=== PATIENT | female | born 1975 | race Caucasian/White ===

== ENCOUNTER 2016-12-14 20:45 | Emergency (ER) | payer OTHER ==
[2016-12-14 20:50] VITALS: BP 152/61; PULSE 86; TEMP 97.9; BMI 21.4
[2016-12-14] MEDS ORDERED: PANTOPRAZOLE 40 MG TABLET (FP) PO ONE (22:41)
--- NOTE | 2016-12-14 22:41 | PDOC ---
History of Present Illness - History of Present Illness Initial Comments: 12/14/16 22:47 41 year old female (LMP: November 30) with no PMHx who presents to the ED with epigastric pain today. Patient states the pain began after she ate. She has had similar symptoms in the past. She reports associated nausea. She had an endoscopy 7 years ago, which was normal. She denies vomiting, diarrhea, constipation. <Anastacia Barrett - Last Filed: 12/14/16 22:47> <Jessica Matute - Last Filed: 12/15/16 01:54> - General Chief Complaint: Pain Stated Complaint: STOMACH ACHE/EMPLOYEE Time Seen by Provider: 12/14/16 21:37 Past History <Anastacia Barrett - Last Filed: 12/14/16 22:47> - Psycho/Social/Smoking Cessation Hx Suicidal Ideation: No Smoking History: Never smoked <Jessica Matute - Last Filed: 12/15/16 01:54> - Past Medical History Allergies/Adverse Reactions: Allergies Allergy/AdvReac Type Severity Reaction Status Date / Time No Known Allergies Allergy Verified 12/14/16 20:48 Home Medications: Ambulatory Orders Omeprazole 20 mg PO DAILY #14 capsule. 12/15/16 Review of Systems - Review of Systems Comments:: 12/14/16 22:47 CONSTITUTIONAL: Absent: fever, no chills, no fatigue EYES: Absent: visual changes ENT: Absent: ear pain, no sore throat CARDIOVASCULAR: Absent: chest pain, no palpitations RESPIRATORY: Absent: cough, no SOB GI: Present: epigastric pain, nausea Absent: no vomiting, no constipation, no diarrhea GENITOURINARY: Absent: dysuria, no frequency, no hematuria MUSCULOSKELETAL: Absent: back pain, no arthralgia, no myalgia SKIN: Absent: rash NEURO: Absent: headache <Anastacia Barrett Last Filed: 12/14/16 22:47> *Physical Exam - Vital Signs Last Vital Signs Temp Pulse Resp BP Pulse Ox 97.9 F 86 18 152/61 100 12/14/16 20:48 12/14/16 20:48 12/14/16 20:48 12/14/16 20:48 12/14/16 20:48 - Physical Exam Comments: 12/14/16 22:47 GENERAL: Well-appearing, well-nourished. No apparent distress. HEENT: Normocephalic, atraumatic. PERRL, EOM intact. CARDIOVASCULAR: Normal S1, S2. Regular rate and rhythm. PULMONARY: Clear to auscultation bilaterally. ABDOMEN: Soft, non-distended, non-tender. EXTREMITIES: Normal ROM in all four extremities. No gross deformities. SKIN: Warm, dry. No rash NEUROLOGICAL: No focal neurological deficits. <Anastacia Barrett - Last Filed: 12/14/16 22:47> - Vital Signs Last Vital Signs Temp Pulse Resp BP Pulse Ox 97.9 F 86 18 152/61 100 12/14/16 20:48 12/14/16 20:48 12/14/16 20:48 12/14/16 20:48 12/14/16 20:48 <Jessica Matute - Last Filed: 12/15/16 01:54> ED Treatment Course - LABORATORY CBC & Chemistry Diagram: 12/15/16 00:05 12/15/16 00:05 <Jessica Matute - Last Filed: 12/15/16 01:54> *DC/Admit/Observation/Transfer - Attestations Scribe Attestion: 12/14/16 22:47 Documentation prepared by Anastacia Barrett, acting as biomedical field service engineer for Jessica Matute MD. <Anastacia Barrett - Last Filed: 12/14/16 22:47> <Jessica Matute - Last Filed: 12/15/16 01:54> Diagnosis at time of Disposition: Epigastric abdominal pain GERD (gastroesophageal reflux disease) Qualifiers: Esophagitis presence: without esophagitis Qualified Code(s): K21.9 - Gastro- esophageal reflux disease without esophagitis - Discharge Dispostion Disposition: HOME Condition at time of disposition: Stable - Prescriptions Prescriptions: Omeprazole 20 mg PO DAILY #14 capsule.dr - Referrals Referrals: Brenton La MD [Primary Care Provider] - - Patient Instructions Printed Discharge Instructions: DI for Gastroesophageal Reflux Disease (GERD), DI for Epigastric Pain Additional Instructions: please follow up with your regular physician hot die picker your prescription medication at your pharmacy
[2016-12-14] MEDS ORDERED: MAG HYDROX/AL HYDROX/SIMETH 30 ML UNIT-DOSE CUP PO ONE (22:42)
[2016-12-14] MEDS ORDERED: ACETAMINOPHEN 325 MG TABLET (FP) PO ONE (22:47)
[2016-12-14] MEDS ORDERED: MAG HYDROX/AL HYDROX/SIMETH 30 ML UNIT-DOSE CUP ONE (23:38)
[2016-12-14] MEDS ORDERED: PANTOPRAZOLE 40 MG TABLET (FP) ONE (23:38)
[2016-12-14] MEDS ORDERED: ACETAMINOPHEN 325 MG TABLET (FP) ONE (23:39)
[2016-12-15 00:33] LABS: BASOPHIL 0.7 % (0-2.0); EOSINOPHIL 3.1 % (0-4.5); MCHC 33.1 g/dl (32.0-36.0); MEAN CELL VOLUME 90.8 fl (80-96); NEUTROPHILS 67.4 % (42.8-82.8); PLATELET COUNT 224 K/MM3 (134-434); RDW 13.3 % (11.6-15.6)
[2016-12-15 01:15] LABS: ALBUMIN 3.8 g/dl (3.4-5.0); ALK PHOS 77 U/L (45-117); ANION GAP 8 (8-16); BILIRUBIN,TOTAL 0.2 mg/dL (0.2-1.0); CALCIUM 9.4 mg/dL (8.5-10.1); CO2 27 mmol/L (21-32); CREATININE 0.7 mg/dL (0.55-1.02); GLUCOSE,RANDOM 109 mg/dL (74-106); SGOT/AST 23 U/L (15-37); SGPT/ALT 24 U/L (12-78); TOT PROT 7.8 g/dl (6.4-8.2)
== END 2016-12-15 02:08 | disposition home or self-care (01) ==
LOC: JER 20:45
DX: J21.9 Acute bronchiolitis, unspecified (principal)
CPT/HCPCS: 36415; 80053; 83690; 85025; 99282-25

== ENCOUNTER 2018-06-12 05:08 | Inpatient (IN) | payer OTHER ==
[2018-06-07 08:43] VITALS: BMI 21.4
[2018-06-12] MEDS ORDERED: PHENAZOPYRIDINE HCL 100 MG TABLET (FP) PO ONE (06:53)
[2018-06-12] MEDS ORDERED: ONDANSETRON 4 MG/2 ML VIAL IVPUSH PRN (07:59)
[2018-06-12] MEDS ORDERED: LACTATED RINGERS SOLUTION 1,000 ML/1,000 ML INFUS.BAG IV SCH (08:00)
--- NOTE | 2018-06-12 08:10 | HP ---
History & Physical Update - History History: No Change - Physical Physical: No Change - Assessment Assessment: No Change - Plan Plan: No Change (No change in HP)
[2018-06-12] MEDS ORDERED: VASOPRESSIN 20 UNITS/ML VIAL IV ONE (09:19)
[2018-06-12] MEDS ORDERED: PHENAZOPYRIDINE HCL 100 MG TABLET (FP) ONE (09:23)
[2018-06-12] MEDS ORDERED: CEFAZOLIN 1 GM/D5W 1 GM/50 ML BAG ONE (09:56)
[2018-06-12] MEDS ORDERED: fentaNYL CITRATE 250 MCG/5 ML VIAL ONE (10:04)
[2018-06-12] MEDS ORDERED: ROCURONIUM BROMIDE 50 MG/5 ML VIAL ONE (10:04)
[2018-06-12] MEDS ORDERED: DEXAMETHASONE SOD PHOSPHATE/PF 10 MG/ML SDV ONE (10:51)
[2018-06-12] MEDS ORDERED: ROPIVACAINE HCL 0.5% 30ML VIAL ONE (10:51)
[2018-06-12] MEDS ORDERED: MIDAZOLAM HCL 2 MG/2 ML SINGLE DOSE VIAL ONE ×2 (10:52)
[2018-06-12] MEDS ORDERED: DEXAMETHASONE SOD PHOSPHATE 4 MG/1 ML VIAL ONE (11:05)
[2018-06-12] MEDS ORDERED: KETOROLAC TROMETHAMINE 30 MG/1 ML VIAL ONE (11:05)
[2018-06-12] MEDS ORDERED: ceFAZolin SODIUM 1 GM VIAL ONE (11:05)
[2018-06-12] MEDS ORDERED: ceFAZolin SODIUM 1 GM VIAL IVPB ONE (11:25)
[2018-06-12] MEDS ORDERED: NEOSTIGMINE METHYLSULFATE 0.5 MG/ML - 10 ML MDV ONE (12:23)
--- NOTE | 2018-06-12 12:44 | OP ---
Operative Note - Note: Operative Date: 06/12/18 Pre-Operative Diagnosis: Uterine fibroids Operation: Open abdominal myomectomy Post-Operative Diagnosis: Same as Pre-op Surgeon: Peggy Del Valle Surgical Garment Assembler: Clay Carter Anesthesiologist/TRUCK RENTAL CLERK: Ronal Mcrae Anesthesia: General Specimens Removed: Uterine fibroids Estimated Blood Loss (mls): 25 Drains, Volume Out (mls): 150 (esquivel - orange secondary to pyridium) Fluid Volume Replaced (mls): 800 Operative Report Dictated: Yes
--- NOTE | 2018-06-12 12:45 | SURG ---
Surgery Wood Type Finisher Note Wood Type Finisher: Clay Carter PA-C Date of Service: 06/12/18 Diagnosis: Uterine fibroids Procedure: Open abdominal myomectomy I was present for the entirety of the operative procedure. For further detail, please refer to operative report. Visit type - Case Type Case Type: Scheduled - New patient This patient is new to me today: Yes Date on this admission: 06/12/18
[2018-06-12] MEDS ORDERED: ACETAMINOPHEN 1000 MG/100 ML VIAL (NON FORMULARY) IVPB ONE (12:53)
[2018-06-12] MEDS ORDERED: KETOROLAC TROMETHAMINE 30 MG/1 ML VIAL IVPUSH ONE (12:53)
[2018-06-12] MEDS ORDERED: oxyCODONE HCL 5 MG TABLET PO PRN ×2 (13:54)
[2018-06-12] MEDS ORDERED: oxyCODONE HCL 5 MG TABLET ONE (14:22)
[2018-06-12] MEDS: IBUPROFEN 800 MG/8 ML IJ IVPB PRN (16:17)
[2018-06-12] MEDS: CEFAZOLIN 1 GM/D5W 1 GM/50 ML BAG IVPB SCH ×2 (17:37→18:00)
--- NOTE | 2018-06-12 17:51 | OP ---
DATE OF OPERATION: 06/12/2018 PREOPERATIVE DIAGNOSIS: Leiomyomatous uterus. OPERATION: Abdominal myomectomy. POSTOPERATIVE DIAGNOSIS: Leiomyomatous uterus, adenomyosis. SURGEON: Andrei Harrington MD NUCLEAR OPERATIONS SPECIALIST: BRIGITTE Arrington ANESTHESIOLOGIST: Zac Scruggs MD NURSE TRANSITION PROGRAM MANAGER: Ronal Mcrae CRNA ANESTHESIA: General. ESTIMATED BLOOD LOSS: 25 mL. Approximately 7 myomas removed including adenomyotic myoma removed. About 100 mL in the Pickett. DESCRIPTION OF PROCEDURE: The patient was taken to the operating room and placed in supine position, prepped and draped in the usual sterile fashion. A time-out was performed in accordance with hospital regulation. Pfannenstiel skin incision was made with the scalpel. Cautery was then used to cut the layers of the abdominal wall to the level of the fascia. The fascia was cut in the midline, and cautery was then used to open the fascia in smiling fashion. Kochers were then used to bluntly and sharply dissect the rectus muscle at the fascia. Muscles split in the midline. Peritoneal cavity was then entered and carried upward and downward. A leiomyomatous uterus was then exteriorized. Mostly subserosal and intramural myomas were palpated and seen. A 5-cm myoma was seen near the bladder. A tourniquet was then placed in the clear space of the broad and tied for hemostasis. Pitressin was then infiltrated into numerous myomas that were mostly subserosal. Cautery was then used to make a 4-cm incision transversely anterior aspect of the uterus and removed an approximately 5-cm myoma with blunt and sharp technique. Protruding fundal myomas were noted, and a transverse incision from right to left was performed. Adenomyosis was seen closer to the endometrial cavity and was then shelled out. An adenomyotic myoma was shelled out. Fundal myoma was also removed approximately 4 cm in the fundus. Endometrial cavity was entered and palpated and found to have no fibroids in the endometrium. A 2-0 Vicryl was then used to close off the endometrium aiming to repair the endometrium in the fundal aspect of the right side of the uterus continuous and locking using 2-0 Vicryl. Muscle was then closed in several layers using 0 Vicryl suture, and V-Lock suture was then used to close the transverse fundal incision. Posterior myoma was noted pedunculated and was approximately 5 cm in size, and that was also removed posteriorly. Incisions were closed in layers using 0 Vicryl suture and V-Lock suture on the serosa for hemostasis. Interceed was then sewn in place, and the uterus was then anteriorized. Irrigation was then done. Peritoneum was then closed after abdominal sweep performed. A 0 Vicryl suture in a continuous fashion was then done. The fascia was then closed using 0 Vicryl suture in 2 ports. The skin was then closed using 2-0 V-Lock suture in a subcuticular fashion. The wound was washed and dressed. The patient tolerated the procedure well and was taken to the recovery room in stable condition. Estimated blood loss 25 mL. ANDREI HARRINGTON M.D. [id number]
[2018-06-12 18:33] LABS: HEMATOCRIT 42.7 % (32.4-45.2); HEMOGLOBIN 14.3 GM/dL (10.7-15.3); MCH 30.4 pg (25.7-33.7); MCHC 33.4 g/dl (32.0-36.0); MEAN CELL VOLUME 91.2 fl (80-96); MEAN PLT VOLUME 9.3 fl (7.5-11.1); PLATELET COUNT 212 K/MM3 (134-434); RBC 4.68 M/mm3 (3.60-5.2); RDW 13.1 % (11.6-15.6); WHITE BLOOD COUNT 14.1 K/mm3 (4.0-10.0)
[2018-06-12 19:09] LABS: ANION GAP 9 MMOL/L (8-16); BLOOD UREA NITROGEN 10 mg/dL (7-18); CALCIUM 8.5 mg/dL (8.5-10.1); CHLORIDE 103 mmol/L (98-107); CO2 25 mmol/L (21-32); CREATININE 0.8 mg/dL (0.55-1.3); GLUCOSE,RANDOM 138 mg/dL (74-106); SODIUM 137 mmol/L (136-145)
[2018-06-13] MEDS: CEFAZOLIN 1 GM/D5W 1 GM/50 ML BAG IVPB SCH (01:30)
[2018-06-13 05:32] LABS: ANION GAP 7 MMOL/L (8-16); BLOOD UREA NITROGEN 10 mg/dL (7-18); CALCIUM 8.3 mg/dL (8.5-10.1); CHLORIDE 105 mmol/L (98-107); CO2 27 mmol/L (21-32); CREATININE 0.7 mg/dL (0.55-1.3); GLUCOSE,RANDOM 105 mg/dL (74-106); POTASSIUM 4.1 mmol/L (3.5-5.1); SODIUM 138 mmol/L (136-145)
[2018-06-13 06:06] LABS: HEMATOCRIT 40.6 % (32.4-45.2); HEMOGLOBIN 13.7 GM/dL (10.7-15.3); MCH 30.5 pg (25.7-33.7); MCHC 33.7 g/dl (32.0-36.0); MEAN CELL VOLUME 90.5 fl (80-96); MEAN PLT VOLUME 9.4 fl (7.5-11.1); PLATELET COUNT 216 K/MM3 (134-434); RBC 4.49 M/mm3 (3.60-5.2); RDW 13.4 % (11.6-15.6); WHITE BLOOD COUNT 13.1 K/mm3 (4.0-10.0)
[2018-06-13] MEDS: IBUPROFEN 800 MG/8 ML IJ IVPB PRN (07:14)
[2018-06-13] MEDS ORDERED: BISACODYL 5 MG TABLET.DR (FP) PO PRN (07:59)
[2018-06-13] MEDS ORDERED: DOCUSATE SODIUM 100 MG CAPSULE (FP) PO PRN (07:59)
--- NOTE | 2018-06-13 08:03 | PN ---
Progress Note (short form) - Note Progress Note: Surgery POD #1 abdominal myomectomy patient seen and examined at bedside with no complaints. Patient stated her pain is controlled and she denies any CP, SOB, N/ V, Fever or chills. Her esquivel is still in and she has not been OOB yet. Vital Signs Temp 98.6 F 06/13/18 02:00 Pulse 82 06/13/18 02:00 Resp 18 06/13/18 02:00 BP 96/42 L 06/13/18 02:00 Pulse Ox 99 06/12/18 21:00 Intake & Output 06/12/18 06/12/18 06/13/18 11:59 23:59 11:59 Intake Total 985 994 4331 Output Total 875 1200 Balance 800 -175 350 Intake: IV 717 925 8133 LACTATED RINGERS SOLUTION 1500 1,000 ml In 1,000 ml @ 125 mls/hr IV ASDIR DANAE Rx#:[id number] IVPB 50 50 Output: Urine 850 1200 Esquivel 350 1200 Estimated Blood Loss 25 Other: Voiding Method Indwelling Catheter Bowel Movement No CBC, BMP 06/13/18 04:55 06/13/18 04:55 PE: A&Ox3, NAD Unlabored resp on RA ABD: soft, with mild ttp over lower quadrants appropriate to status, ND, incision c/d/i with steri strips in place, surrounding tissue intact and no tacking erythema or d/c Problem List - Problems (1) S/P myomectomy Assessment/Plan: POD #1 abdominal myomectomy doing well. 1) D/c esquivel and trend I&Os 2) Advance diet to clears 3) OOB with assist as tolerated 4) encourage IS 5) d/c planning for tomorrow pending. Code(s): Z98.890 - OTHER SPECIFIED POSTPROCEDURAL STATES
[2018-06-13] MEDS ORDERED: ENOXAPARIN NA (PORCINE) 40 MG/0.4 ML DISP.SYRIN SQ SCH (10:00)
[2018-06-13] MEDS: ENOXAPARIN NA (PORCINE) 40 MG/0.4 ML DISP.SYRIN SQ SCH (10:50)
[2018-06-13] MEDS: oxyCODONE HCL 5 MG TABLET PO PRN ×3 (12:29→20:45)
[2018-06-13] MEDS: ACETAMINOPHEN 325 MG TABLET (FP) PO PRN ×3 (12:29→20:45)
--- NOTE | 2018-06-13 17:10 | PATH ---
Surgical Pathology Report Patient Name: JESUS KENNY [facility]. Rec. #: [id number] /Age/Gender: 1975 (Age: 42) / F Account: [id number] Location: [facility] OBS/AGRICULTURIST Taken: 06/12/2018 Received: 06/12/2018 Reported: 06/13/2018 Physicians: Peggy Del Valle M.D. Specimen(s) Received FIBROIDS Clinical History Leiomyoma of uterus Final Diagnosis FIBROIDS, ABDOMINAL MYOMECTOMY: 181 G LEIOMYOMA(TA) AND ADENOMYOSIS. Electronically Signed Tomasa Garcia M.D. Gross Description Received in formalin labeled "fibroids," is a 181 g aggregate of 5 iglesias, rubbery nodules ranging from 3.4-6.0 cm in greatest dimension, consistent with fibroids. Some of the fibroids display foci of degeneration. Cotton Ball Bagger sections are submitted in 7 cassettes as follows: 4-2-mlehfcmtjlpdro sections from four smaller fibroids; 5-7-largest fibroid. /06/12/2018 [facility]06/12/2018
[2018-06-13] MEDS ORDERED: BISACODYL 10 MG SUPP.RECT RC PRN (19:06)
[2018-06-14] MEDS: ACETAMINOPHEN 325 MG TABLET (FP) PO PRN ×2 (03:00→09:30)
[2018-06-14] MEDS: oxyCODONE HCL 5 MG TABLET PO PRN ×2 (03:01→09:30)
--- NOTE | 2018-06-14 07:31 | DS ---
Physical Exam: SUBJECTIVE: Patient seen and examined at bedside POD #2 abdominal myomectomy. Patient states she had lots of gas pain yesterday under her right diaphragm which resolved while sitting up in chair and has continued to improve overnight. She is passing gas and tolerating her regular diet and voiding. Her pain is controlled and she she denies any CP, SOB, N/V fever or chills OBJECTIVE: Vital Signs Temp 98.4 F 06/13/18 21:00 Pulse 69 06/13/18 21:00 Resp 18 06/13/18 21:00 BP 114/69 06/13/18 21:00 Pulse Ox 99 06/12/18 21:00 Intake & Output 06/13/18 06/13/18 06/14/18 11:59 23:59 11:59 Intake Total 1800 Output Total 1550 600 100 Balance 250 -600 -100 Intake: IV 1500 LACTATED RINGERS SOLUTION 1500 1,000 ml In 1,000 ml @ 125 mls/hr IV ASDIR DANAE Rx#:[id number] IVPB 300 Output: Urine 1550 600 100 Pickett 1550 Void 600 100 Other: Voiding Method Toilet Toilet # Unmeasured Voids Void 1 Bowel Movement No PHYSICAL EXAM GENERAL: The patient is awake, alert, and fully oriented, in no acute distress. HEAD: Normal with no signs of trauma. EYES: sclera anicteric, conjunctiva clear. NECK: Trachea midline, LUNGS: No auditory wheezes, no accessory muscle use, unlabored resp on RA HEART: Regular rate and rhythm, S1, S2 without murmur, rub or gallop. ABD: Soft, ND with mild ttp over lower quadrants, incision c/d/i with surrounding tissue intact and steris in place, no d/c. EXTREMITIES: 2+ pulses, warm, well-perfused, no edema. LE compartments soft, supple and non-tender. NEUROLOGICAL: Cranial nerves II through XII grossly intact. Normal speech, gait not observed. PSYCH: Normal mood, normal affect. SKIN: Warm, dry, normal turgor, no rashes or lesions noted. LABS CBC,CMP WBC 13.1 K/mm3 (4.0-10.0) H 06/13/18 04:55 RBC 4.49 M/mm3 (3.60-5.2) 06/13/18 04:55 Hgb 13.7 GM/dL (10.7-15.3) 06/13/18 04:55 Hct 40.6 % (32.4-45.2) 06/13/18 04:55 MCV 90.5 fl (80-96) 06/13/18 04:55 MCH 30.5 pg (25.7-33.7) 06/13/18 04:55 MCHC 33.7 g/dl (32.0-36.0) 06/13/18 04:55 RDW 13.4 % (11.6-15.6) 06/13/18 04:55 Plt Count 216 K/MM3 (134-434) 06/13/18 04:55 MPV 9.4 fl (7.5-11.1) 06/13/18 04:55 Sodium 138 mmol/L (136-145) 06/13/18 04:55 Potassium 4.1 mmol/L (3.5-5.1) 06/13/18 04:55 Chloride 105 mmol/L (98-107) 06/13/18 04:55 Carbon Dioxide 27 mmol/L (21-32) 06/13/18 04:55 Anion Gap 7 MMOL/L (8-16) L 06/13/18 04:55 BUN 10 mg/dL (7-18) 06/13/18 04:55 Creatinine 0.7 mg/dL (0.55-1.3) 06/13/18 04:55 Creat Clearance w eGFR > 60 (>60) 06/13/18 04:55 Random Glucose 105 mg/dL (74-106) 06/13/18 04:55 Calcium 8.3 mg/dL (8.5-10.1) L 06/13/18 04:55 HOSPITAL COURSE: Date of Admission:06/12/18 Date of Discharge: 06/14/18 Minutes to complete discharge: 25
[2018-06-14 08:13] VITALS: BP 101/65; PULSE 80; TEMP 98.8
--- NOTE | 2018-06-14 09:03 | DS ---
"Physical Examination Vital Signs: Vital Signs Temperature 98.8 F 06/14/18 08:12 Pulse Rate 80 06/14/18 08:12 Respiratory Rate 20 06/14/18 08:12 Blood Pressure 101/65 06/14/18 08:12 O2 Sat by Pulse Oximetry (%) 99 06/12/18 21:00 Constitutional: Yes: Well Nourished Eyes: Yes: Conjunctiva Clear HENT: Yes: Atraumatic Neck: Yes: Supple Cardiovascular: Yes: Regular Rate and Rhythm Respiratory: Yes: Regular Gastrointestinal: Yes: Normal Bowel Sounds Breast(s): Yes: WNL Musculoskeletal: Yes: WNL Extremities: Yes: WNL Neurological: Yes: Alert, Oriented ...Motor Strength: WNL Psychiatric: Yes: Alert, Oriented Labs: CBC, BMP 06/13/18 04:55 06/13/18 04:55 Discharge Summary Reason For Visit: LEIOMYOMA OF UTERUS Current Active Problems S/P myomectomy (Acute) Procedures: Principal: Abdominal myomectomy Hospital Course: Routine post op care Condition: Good - Instructions Diet, Activity, Other Instructions: Dr. Peggy Del Valle Uniform Attendant discharge instructions Physical activity Resume your normal everyday activity as tolerated no heavy lifting or exercise until seen by your surgeon. You may walk unlimited alexandre of and climb stairs. You may resume driving the car when you feel safe and comfortable behind the wheel. No sexual activity as instructed by Dr. Del Valle. Wound care If you have a bandage, leave it on, and keep dry for 48-72 hours. After that time discard the outer bandage. If they are tapes on the skin under the out of bandage leave them in place. They will peel off in the next 7 to 10 days. Do Not Peel them off. You may shower the day after surgery. If there are tapes present on the skin, you may shower over them. Diet There are no dietary restrictions. Eat healthy, high-fiber foods. Drink 6 to 8 glasses of liquid each day. This will assist in keeping your bowels are regular. Pain management You may take Tylenol or acetaminophen or Ibuprofen (for example, Motrin, Advil etc.) from my pain prescription medication is ordered should be taken as prescribed for moderate to severe pain. Call Dr. Del Valle for any of the following: Severe pain not relieved by medication Fever of 101 or higher Excessive bleeding or drainage on dressing Inability to urinate Call the office at [phone] for an appointment in seven days. This report was requested by: Frances Sousa | Reference #: [id number] Disposition: HOME - Home Medications Comprehensive Discharge Medication List: Ambulatory Orders Oxycodone HCl/Acetaminophen [Percocet 5-325 mg Tablet] 1 - 2 tab PO Q4H PRN #20 tablet MDD 6 06/13/18 Docusate Sodium [Colace] 100 mg PO TID PRN #45 capsule 06/14/18"
[2018-06-14] MEDS: ENOXAPARIN NA (PORCINE) 40 MG/0.4 ML DISP.SYRIN SQ SCH (09:10)
--- NOTE | 2018-06-14 10:21 | PN ---
Progress Note (short form) - Note Progress Note: Surgery Patient seen and examined at bedside POD #2 abdominal myomectomy. Patient states she had lots of gas pain yesterday under her right diaphragm which resolved while sitting up in chair and has continued to improve overnight. She is passing gas and tolerating her regular diet and voiding. Her pain is controlled and she she denies any CP, SOB, N/V fever or chills Vital Signs Temp 98.8 F 06/14/18 08:12 Pulse 80 06/14/18 08:12 Resp 20 06/14/18 08:12 BP 101/65 06/14/18 08:12 Pulse Ox 99 06/12/18 21:00 Intake & Output 06/13/18 06/13/18 06/14/18 11:59 23:59 11:59 Intake Total 1800 Output Total 1550 600 100 Balance 250 -600 -100 Intake: IV 1500 LACTATED RINGERS SOLUTION 1500 1,000 ml In 1,000 ml @ 125 mls/hr IV ASDIR DANAE Rx#:[id number] IVPB 300 Output: Urine 1550 600 100 Pickett 1550 Void 600 100 Other: Voiding Method Toilet Toilet # Unmeasured Voids Void 1 Bowel Movement No CBC, BMP 06/13/18 04:55 06/13/18 04:55 PE: A&Ox3, NAD Unlabored resp on RA ABD: soft, with mild ttp over lower quadrants appropriate to status, ND, incision c/d/i with steri strips in place, surrounding tissue intact and no tacking erythema or d/c LE compartments soft, supple and non-tender to palpation with +2 DP pulses Problem List - Problems (1) S/P myomectomy Assessment/Plan: POD #2 abdominal myomectomy doing well. 1) OOB as tolerated, walking will help mitigate gas pain 2) Pain control 3) encourage IS 4) d/c home later today if gas pain resolves, tolerating diet and no new symptoma. Evaluation and plan discussed with Dr Del Valle. Code(s): Z98.890 - OTHER SPECIFIED POSTPROCEDURAL STATES
== END 2018-06-14 12:53 | disposition home or self-care (01) | DRG 743 ==
LOC: JSAMEDAYSX 05:08 → J3W 14:48
PROVIDERS: ADMIT Obstetrics & Gynecology; ATTEND Obstetrics & Gynecology
PROC: 0UB90ZZ Excision of Uterus, Open Approach (ICD-10-PCS; principal; 2018-06-12 10:20)
DX: D25.9 Leiomyoma of uterus, unspecified (principal); N80.0 Endometriosis of uterus
CPT/HCPCS: 36415; 80048; 84703; 85027; 88305-TC; 94010; 94760; J0131